=== PATIENT | female | born 1965 | race Caucasian/White ===

== ENCOUNTER 2016-09-21 17:31 | Observation (INO) | payer MEDICAID, OTHER ==
[~2016-09-21 17:31] MED LIST: ATEN-100 PO; BENI40TA30 PO; CLON.1 PO; DIFL150T PO; GLUC10TA3 PO; LANTUS2P SC; LEVO.025 PO; LIPI20TA PO; LISI-360 PO; LISI-363 PO; MAXZ PO; MELO15 PO; METF-324 PO; NORC7.5T PO; NORV10TA PO; PIOG15 PO; PRIL20CA PO; SITA100T PO
[2016-09-21 17:35] VITALS: BP 128/86; PULSE 100; RESP 16; TEMP 98.8; O2SAT 100
--- NOTE | 2016-09-21 17:39 | PD ---
Physical Exam Date Seen by Provider: Sep 21, 2016 Time Seen by Provider: 17:35 Narrative Pt started have abdominal cramps last night. Diarrhea started last night around 2230, pt states she was up all night. She states her stomach is sore and she has a headache. When she was having the recurring bowel movements she became diaphoretic. Shes not having loose stools today but continues to have abdominal cramping. Her pain is a 5/10-8/10. PMHx: Diverticulosis, T2DM, HTN, HLD, hypothyroid, GERD. MDM Supervised Visit with DIANDRA: Yulissa Ruiz Sep 21, 2016 17:39
[2016-09-21] MEDS ORDERED: SODIUM CHLOR 0.9% 1000 ML INJ 1,000 ML IV SCH ×2 (18:27→20:29)
[2016-09-21] MEDS ORDERED: SODIUM CHLORIDE 0.9% FLUSH 10 ML FLUSH IV FLUSH PRN ×2 (18:30→20:30)
[2016-09-21] MEDS ORDERED: MORPHINE SULFATE 4 MG/ML INJ IV PUSH ONE (18:30)
[2016-09-21] MEDS ORDERED: ONDANSETRON HCL 4 MG/2 ML VIAL IVP ONE (18:30)
[2016-09-21 18:42] VITALS: BP 128/68; PULSE 79; RESP 16; O2SAT 99
[2016-09-21 18:53] LABS: AUTOMATED NEUTROPHIL # 7.7 TH/MM3 (1.8-7.7); BASOPHIL # 0.1 TH/MM3 (0-0.2); BASOPHIL % 0.5 % (0.0-2.0); EOSINOPHIL # 0.1 TH/MM3 (0-0.4); EOSINOPHIL % 1.1 % (0.0-4.0); HEMATOCRIT 37.4 % (35.0-46.0); HEMO FLAGS DIFF FINAL; LYMPH % 18.9 % (9.0-44.0); LYMPHOCYTE # 1.9 TH/MM3 (1.0-4.8); MEAN CELL VOLUME 85.5 FL (80.0-100.0); MEAN CORPUSCULAR HEMOGLOBIN 27.5 PG (27.0-34.0); MEAN CORPUSCULAR HGB CONC 32.2 % (32.0-36.0); MONO % 4.9 % (0.0-8.0); NEUT % 74.6 % (16.0-70.0); PLATELET COUNT 150 TH/MM3 (150-450); RED BLOOD COUNT 4.37 MIL/MM3 (4.00-5.30); RED CELL DISTRIBUTION WIDTH 13.8 % (11.6-17.2); WHITE BLOOD COUNT 10.3 TH/MM3 (4.0-11.0)
--- NOTE | 2016-09-21 19:00 | PD ---
HPI Chief Complaint: Abdominal Pain Time Seen by Provider: 18:18 Travel History International Travel<30 days: No Contact w/Intl Traveler<30days: No Traveled to known affect area: No History of Present Illness HPI Patient is a 51-year-old female presents emergency Department with abdominal cramping particularly in the left lower quadrant as well as some diarrhea since last night. Patient states diarrhea initially was melena and now has become bright red blood. She does state that she has a history of liver disease and cirrhosis. She states that the diarrhea was so intense last night that she was becoming diaphoretic and felt like she was given a pass out from it. States the abdominal cramping is now very intense and she decided to come in and be seen. Her only abdominal history is a section. She denies any fevers denies any hemoptysis or hematemesis. Denies any chest pain or shortness of breath. PFSH Past Medical History Arthritis: Yes Anxiety: Yes Depression: Yes Cancer: No Cardiac Catheterization: No Cardiovascular Problems: Yes High Cholesterol: Yes Congestive Heart Failure: No Diabetes: Yes Diminished Hearing: No Gastrointestinal Disorders: Yes (IBS) Glaucoma: No Hepatitis: Yes (HEP C) Hiatal Hernia: No Hypertension: Yes Respiratory: No Immunizations Current: No Thyroid Disease: No Menopausal: Yes : 2 Para: 2 Tubal Ligation: Yes Past Surgical History Section: Yes Gynecologic Surgery: Yes (C SECTION/ TUBAL LIGATION) Neurologic Surgery: Yes (BACK) Pacemaker: No Social History Alcohol Use: No Tobacco Use: Yes (1 ppd) Substance Use: No Allergies-Medications (Allergen,Severity, Reaction): Coded Allergies: Hctz (Verified Adverse Reaction, Intermediate, WEAKNESS, LIGHTHEADED, NAUSEA, 09/21/16) Reported Meds & Prescriptions Reported Meds & Active Scripts Active Reported Amlodipine (Amlodipine Besylate) 10 Mg Tab 10 Mg PO DAILY Tizanidine (Tizanidine HCl) 4 Mg Cap 4 Mg PO TID Pioglitazone (Pioglitazone HCl) 30 Mg Tab 30 Mg PO DAILY Omeprazole 20 Mg Tab 20 Mg PO DAILY Vitamin D2 (Ergocalciferol) 2,000 Unit Tab 50,000 Units PO WEEKLY Lisinopril 40 Mg Tab 40 Mg PO DAILY Novolin 70-30 Inj (Insulin Human Isoph/Insulin Regular) 1,000 Unit/10 Ml Vial 12 Units SQ Janumet Xr (Sitagliptin-Metformin ER) 100-1,000 Mg Tab 1 Tab PO DAILY Levothyroxine (Levothyroxine Sodium) 150 Mcg Tab 150 Mcg PO DAILY Lantus Inj (Insulin Glargine) 1,000 Unit/10 Ml Vial 20 Units SQ HS Review of Systems Except as stated in HPI: all other systems reviewed are Neg Physical Exam Narrative GENERAL: Well-developed well-nourished no apparent distress. SKIN: Focused skin assessment warm/dry. HEAD: Atraumatic. Normocephalic. EYES: Pupils equal and round. No scleral icterus. No injection or drainage. ENT: No nasal bleeding or discharge. Mucous membranes pink and moist. NECK: Trachea midline. No JVD. CARDIOVASCULAR: Regular rate and rhythm. No murmur appreciated. RESPIRATORY: No accessory muscle use. Clear to auscultation. Breath sounds equal bilaterally. GASTROINTESTINAL: Abdomen soft, non-tender, nondistended. Hepatic and splenic margins not palpable. RECTAL: Exam performed with female nurse load dispatcher present at all times. Patient does have no hemorrhoids no fissures no masses. She has some grainy gross red blood. MUSCULOSKELETAL: No obvious deformities. No clubbing. No cyanosis. No edema. NEUROLOGICAL: Awake and alert. No obvious cranial nerve deficits. Motor grossly within normal limits. Normal speech. PSYCHIATRIC: Appropriate mood and affect; insight and judgment normal. Data Data Last Documented VS Vital Signs Date Time Temp Pulse Resp B/P Pulse Ox O2 Delivery O2 Flow Rate FiO2 09/21/16 20:15 83 16 129/70 98 Room Air 09/21/16 17:35 98.8 Orders Complete Blood Count With Diff (09/21/16 18:27) Comprehensive Metabolic Panel (09/21/16 18:27) Lipase (09/21/16 18:27) Prothrombin Time / Inr (Pt) (09/21/16 18:27) Act Partial Throm Time (Ptt) (09/21/16 18:27) Urinalysis - C+S If Indicated (09/21/16 18:27) Ct Abd/Pel W Iv Contrast(Rout) (09/21/16 18:27) Iv Access Insert/Monitor (09/21/16 18:27) Ecg Monitoring (09/21/16 18:27) Oximetry (09/21/16 18:27) Morphine Inj (Morphine Inj) (09/21/16 18:30) Ondansetron Inj (Zofran Inj) (09/21/16 18:30) Sodium Chlor 0.9% 1000 Ml Inj (Ns 1000 M (09/21/16 18:27) Sodium Chloride 0.9% Flush (Ns Flush) (09/21/16 18:30) Type And Screen (09/21/16 18:27) Electrocardiogram (09/21/16 ) Troponin I (09/21/16 19:15) Iohexol 350 Inj (Omnipaque 350 Inj) (09/21/16 19:45) Ciprofloxacin 400 Mg Premix (Cipro 400 M (09/21/16 20:15) Metronidazole 500 Mg Inj (Flagyl 500 Mg (09/21/16 20:15) Admit Order (Ed Use Only) (09/21/16 ) Labs Laboratory Tests Test 09/21/16 09/21/16 18:40 18:54 White Blood Count 10.3 TH/MM3 Red Blood Count 4.37 MIL/MM3 Hemoglobin 12.0 GM/DL Hematocrit 37.4 % Mean Corpuscular Volume 85.5 FL Mean Corpuscular Hemoglobin 27.5 PG Mean Corpuscular Hemoglobin 32.2 % Concent Red Cell Distribution Width 13.8 % Platelet Count 150 TH/MM3 Mean Platelet Volume 8.8 FL Neutrophils (%) (Auto) 74.6 % Lymphocytes (%) (Auto) 18.9 % Monocytes (%) (Auto) 4.9 % Eosinophils (%) (Auto) 1.1 % Basophils (%) (Auto) 0.5 % Neutrophils # (Auto) 7.7 TH/MM3 Lymphocytes # (Auto) 1.9 TH/MM3 Monocytes # (Auto) 0.5 TH/MM3 Eosinophils # (Auto) 0.1 TH/MM3 Basophils # (Auto) 0.1 TH/MM3 CBC Comment DIFF FINAL Differential Comment Prothrombin Time 11.9 SEC Prothromb Time International 1.1 RATIO Ratio Activated Partial 27.6 SEC Thromboplast Time Sodium Level 139 MEQ/L Potassium Level 3.8 MEQ/L Chloride Level 103 MEQ/L Carbon Dioxide Level 24.8 MEQ/L Anion Gap 11 MEQ/L Blood Urea Nitrogen 10 MG/DL Creatinine 0.87 MG/DL Estimat Glomerular Filtration 69 ML/MIN Rate Random Glucose 222 MG/DL Calcium Level 9.2 MG/DL Total Bilirubin 0.4 MG/DL Aspartate Amino Transf 14 U/L (AST/SGOT) Alanine Aminotransferase 24 U/L (ALT/SGPT) Alkaline Phosphatase 68 U/L Troponin I LESS THAN 0.02 NG/ML Total Protein 7.7 GM/DL Albumin 3.7 GM/DL Lipase 139 U/L Blood Type A POSITIVE Antibody Screen NEGATIVE Blood Bank Comment P Urine Color LIGHT-YELLOW Urine Turbidity CLEAR Urine pH 5.5 Urine Specific [place] 1.033 Urine Protein NEG mg/dL Urine Glucose (UA) 1000 mg/dL Urine Ketones NEG mg/dL Urine Occult Blood NEG Urine Nitrite NEG Urine Bilirubin NEG Urine Urobilinogen LESS THAN 2.0 MG/DL Urine Leukocyte Esterase NEG Urine RBC LESS THAN 1 /hpf Urine WBC 4 /hpf Urine Squamous Epithelial <1 /hpf Cells Microscopic Urinalysis Comment CULT NOT INDICATED MDM Medical Decision Making Medical Screen Exam Complete: Yes Emergency Medical Condition: Yes Interpretation(s) EKG shows normal sinus rhythm with a borderline left axis deviation and normal R -wave progression. No concerning ST-T changes. Intervals within normal limits. This borderline EKG. Differential Diagnosis Abdominal cramping, GI bleed, acute abdomen unlikely, diverticulitis, diverticulosis, coagulopathy. Narrative Course Patient was roomed in the emergency department. Notable findings were left lower quadrant abdominal pain, hemoglobin of 12, vital signs are stable, no evidence of hypoperfusion. She does have gross blood on her rectal exam. Given the history of liver disease as well as GI bleeding CAT scan was warranted. Last 24 hours Impressions Abdomen/Pelvis CT 09/21/16 3354 Signed Impressions: Service Date/Time: Wednesday, September 21, 2016 19:36 - CONCLUSION: 1. Colitis descending colon. Inflammatory changes without abscess or perforation. 2. Diverticulosis sigmoid colon. 3. Cholecystectomy clips. Vargas Mata MD Discussed the results with the patient who is feeling somewhat better. Discussed given her history of liver disease as well as GI bleeding and her age she would be well to do for observation. For hemoglobin trending at a minimum and she is agreeable. We'll start on empiric Cipro and Flagyl for colitis. Patient was discussed with Dr. Lara for admission. An EKG and troponin were obtained due to the patient's diaphoresis both of which are unremarkable. Patient is highly atypical for ACS. Diagnosis Primary Impression: GI bleed Qualified Code: K92.2 - Gastrointestinal hemorrhage, unspecified gastrointestinal hemorrhage type Additional Impression: Colitis Admitting Information Admitting Physician Requests: Observation Condition: Stable Mitch Ghosh MD Sep 21, 2016 19:00
[2016-09-21 19:03] LABS: APTT (PATIENT) 27.6 SEC (24.3-30.1); INTERNATIONAL NORMALIZED RATIO 1.1 RATIO; PROTHROMBIN TIME - PATIENT 11.9 SEC (9.8-11.6)
[2016-09-21 19:13] LABS: ALKALINE PHOSPHATASE 68 U/L (45-117); ALT (GPT) 24 U/L (10-53); ANION GAP 11 MEQ/L (5-15); AST (GOT) 14 U/L (15-37); BICARBONATE 24.8 MEQ/L (21.0-32.0); BLOOD UREA NITROGEN 10 MG/DL (7-18); CHLORIDE 103 MEQ/L (98-107); GLOMERULAR FILTRATION RATE 69 ML/MIN (>89); POTASSIUM 3.8 MEQ/L (3.5-5.1); SODIUM (NA) 139 MEQ/L (136-145); TOTAL BILIRUBIN ADULT 0.4 MG/DL (0.2-1.0)
[2016-09-21 19:19] LABS: BLOOD, URINE NEG (NEG); GLUCOSE,URINE 1000 mg/dL (NEG); KETONE, URINE NEG (NEG); NITRITE,URINE NEG (NEG); PH, URINE 5.5 (5.0-8.5); SQUAMOUS EPITHELIAL CELL URINE <1 /hpf (0-5); URINE COLOR LIGHT-YELLOW (YELLW/STRAW)
[2016-09-21 19:29] LABS: COMMENT (UR) CULT NOT INDICATED; CULTURE IF INDICATED CULT NOT INDICATED
[2016-09-21] MEDS ORDERED: IOHEXOL 350 MG/ML 10 ML VIAL (for RAD DIAG) IV ONE (19:45)
--- NOTE | 2016-09-21 20:02 | RADRPT ---
EXAM DATE/TIME: 09/21/2016 19:36 [facility] COMPARISON: No previous studies available for comparison. INDICATIONS : Abdomen pain with diarrhea. IV CONTRAST: 93 cc Omnipaque 350 (iohexol) IV ORAL CONTRAST: No oral contrast ingested. RADIATION DOSE: 12.53 CTDIvol (mGy) MEDICAL HISTORY : Cardiovascular disease. Hypertension. Diabetes mellitus type 2.Hep C SURGICAL HISTORY : Tubal ligation. ENCOUNTER: Initial ACUITY: 1 day PAIN SCALE: 6/10 LOCATION: Bilateral abdomen TECHNIQUE: Volumetric scanning of the abdomen and pelvis was performed. Using automated exposure control and ad justment of the mA and/or kV according to patient size, radiation dose was kept as low as reasonably achievable to obtain optimal diagnostic quality images. FINDINGS: LOWER LUNGS: The visualized lower lungs are clear. LIVER: Homogeneous density without lesion. There is no dilation of the biliary tree. Cholecystectomy clips. SPLEEN: Normal size without lesion. PANCREAS: Within normal limits. KIDNEYS: Normal in size and shape. There is no mass, stone or hydronephrosis. ADRENAL GLANDS: Within normal limits. VASCULAR: There is no aortic aneurysm. BOWEL/MESENTERY: Wall thickening and inflammatory changes involving the descending colon. There is diverticulosis of t he sigmoid colon.. There is no free intraperitoneal air or fluid. ABDOMINAL WALL: Within normal limits. RETROPERITONEUM: There is no lymphadenopathy. BLADDER: No wall thickening or mass. REPRODUCTIVE: Within normal limits. INGUINAL: There is no lymphadenopathy or hernia. MUSCULOSKELETAL: Within normal limits for patient age. CONCLUSION: 1. Colitis descending colon. Inflammatory changes without abscess or perforation. 2. Diverticulosis sigmoid colon. 3. Cholecystectomy clips. Vargas Mata MD on September 21, 2016 at 19:58 Board Certified Radiologist. This report was verified electronically.
[2016-09-21 20:15] VITALS: BP 129/70; PULSE 83; RESP 16; O2SAT 98
[2016-09-21] MEDS ORDERED: CIPROFLOXACIN 400 MG PREMIX 200 ML IV ONE (20:15)
[2016-09-21] MEDS ORDERED: metroNIDAZOLE 500 MG INJ 100 ML IV ONE (20:15)
[2016-09-21] MEDS ORDERED: ONDANSETRON HCL 4 MG/2 ML VIAL IVP PRN (20:30)
[2016-09-21] MEDS ORDERED: NALOXONE HCL 0.4 MG/ML AMP IV PRN (20:30)
[2016-09-21] MEDS ORDERED: LANTUS2P SQ (20:46)
[2016-09-21] MEDS ORDERED: PIOG30TA4 PO (20:46)
[2016-09-21] MEDS ORDERED: TIZA4CAP3 PO (20:46)
[2016-09-21] MEDS ORDERED: NOVO7030P2 SQ (20:46)
[2016-09-21] MEDS ORDERED: LISI40TA PO (20:46)
[2016-09-21] MEDS ORDERED: ERGO2000 PO (20:46)
[2016-09-21] MEDS ORDERED: SITA100T PO (20:46)
[2016-09-21] MEDS ORDERED: OMEP20TA PO (20:46)
[2016-09-21] MEDS ORDERED: LEVO150T7 PO (20:46)
[2016-09-21] MEDS ORDERED: AMLO10TA2 PO (20:47)
[2016-09-21] MEDS: SODIUM CHLORIDE 0.9% FLUSH 10 ML FLUSH IV FLUSH SCH (21:00)
[2016-09-21] MEDS ORDERED: PANTOPRAZOLE INJ 80 MG in SODIUM CHLORIDE 0.9% INJ 35 ML IV ONE (21:30)
--- NOTE | 2016-09-21 21:41 | HHI.HP ---
HPI Service [facility] Primary Care Physician Scott Quinones M.D. Admission Diagnosis GI bleeding Diagnoses: Chief Complaint: abdominal pain with GI bleed Travel History International Travel<30 Days: No Contact w/Intl Traveler <30 Da: No Traveled to Known Affected Are: No History of Present Illness This is a 51 year old female patient with a past medical history which includes diabetes, HTN, thyroid, hyperlipidemia, cirrhosis- denies varices, hep C s/p treatment 2013 and IBS. Patient reports she was in her normal state of ivone until last night around 1030PM. At that time patient reports severe cramping abdominal pain associated with "the runs" at first stools were dark black then transitioned to brown with red blood. Patient also reports abdominal bloating. Patient also reports associated diaphoresis, cold sweat then flushing and feeling lightheaded last night while on toilet. She denies shortness of breath , chest pain or changes on diet. Review of Systems Except as stated in HPI: all other systems reviewed are Neg Past Family Social History Past Medical History diabetes, HTN, thyroid, hyperlipidemia, cirrhosis- denies varices, hep C s/p treatment 2013 and IBS Past Surgical History cholecystectomy, c section, back surgery Reported Medications Amlodipine (Amlodipine Besylate) 10 Mg Tab 10 Mg PO DAILY Tizanidine (Tizanidine HCl) 4 Mg Cap 4 Mg PO TID Pioglitazone (Pioglitazone HCl) 30 Mg Tab 30 Mg PO DAILY Omeprazole 20 Mg Tab 20 Mg PO DAILY Vitamin D2 (Ergocalciferol) 2,000 Unit Tab 50,000 Units PO WEEKLY Lisinopril 40 Mg Tab 40 Mg PO DAILY Novolin 70-30 Inj (Insulin Human Isoph/Insulin Regular) 1,000 Unit/10 Ml Vial 12 Units SQ Janumet Xr (Sitagliptin-Metformin ER) 100-1,000 Mg Tab 1 Tab PO DAILY Levothyroxine (Levothyroxine Sodium) 150 Mcg Tab 150 Mcg PO DAILY Lantus Inj (Insulin Glargine) 1,000 Unit/10 Ml Vial 20 Units SQ HS Allergies: Coded Allergies: Hctz (Verified Adverse Reaction, Intermediate, WEAKNESS, LIGHTHEADED, NAUSEA, 09/21/16) Active Ordered Medications Current Medications Medications (Trade) Dose Ordered Sig/Mook Route Start Time Stop Time Status Last Admin (NS Flush) 2 ml UNSCH PRN IV FLUSH 09/21/16 20:30 (NS Flush) 2 ml BID IV FLUSH 09/21/16 21:00 (Zofran Inj) 4 mg Q6H PRN IVP 09/21/16 20:30 Naloxone HCl 0.4 mg 0.4 mg UNSCH PRN IV 09/21/16 20:30 Ciprofloxacin/ Dextrose 200 ml @ 200 mls/hr Q12H IV 09/22/16 08:00 Metronidazole 100 ml @ 100 mls/hr Q6H IV 09/22/16 03:00 Pantoprazole Sodium 80 mg/ Sodium Chloride 100 ml @ 10 mls/hr Q10H IV 09/21/16 21:30 (D5W-NS 1000 ml Inj) 1,000 ml @ 42 mls/hr [id number] IV 09/21/16 21:45 Family History Mother DM, HTN, colitis, diverticulosis Social History smoke 1 PPD quit ETOH use 14 years ago Physical Exam Vital Signs Vital Signs Date Time Temp Pulse Resp B/P Pulse Ox O2 Delivery O2 Flow Rate FiO2 09/21/16 20:15 83 16 129/70 98 Room Air 09/21/16 19:00 16 09/21/16 18:42 79 16 128/68 99 Room Air 09/21/16 17:35 98.8 100 16 128/86 100 Physical Exam GENERAL: This is a well-nourished, well-developed patient, appears uncomfortable SKIN: No rashes, ecchymoses or lesions. Cool and dry. HEAD: Atraumatic. Normocephalic. No temporal or scalp tenderness. EYES: Extraocular motions intact. No scleral icterus. No injection or drainage. CARDIOVASCULAR: Regular rate and rhythm without murmurs, gallops, or rubs. RESPIRATORY: Clear to auscultation. Breath sounds equal bilaterally. No wheezes , rales, or rhonchi. GASTROINTESTINAL: Abdomen soft, tender throughout worse LLQ, distended. MUSCULOSKELETAL: Extremities without clubbing, cyanosis, or edema. No joint tenderness, effusion, or edema noted. No calf tenderness. Negative Homans sign bilaterally. NEUROLOGICAL: Awake and alert. Motor and sensory grossly within normal limits. Five out of 5 muscle strength in all muscle groups. Normal speech. Laboratory Laboratory Tests Test 09/21/16 09/21/16 18:40 18:54 White Blood Count 10.3 Red Blood Count 4.37 Hemoglobin 12.0 Hematocrit 37.4 Mean Corpuscular Volume 85.5 Mean Corpuscular Hemoglobin 27.5 Mean Corpuscular Hemoglobin 32.2 Concent Red Cell Distribution Width 13.8 Platelet Count 150 Mean Platelet Volume 8.8 Neutrophils (%) (Auto) 74.6 Lymphocytes (%) (Auto) 18.9 Monocytes (%) (Auto) 4.9 Eosinophils (%) (Auto) 1.1 Basophils (%) (Auto) 0.5 Neutrophils # (Auto) 7.7 Lymphocytes # (Auto) 1.9 Monocytes # (Auto) 0.5 Eosinophils # (Auto) 0.1 Basophils # (Auto) 0.1 CBC Comment DIFF FINAL Differential Comment Prothrombin Time 11.9 Prothromb Time International 1.1 Ratio Activated Partial 27.6 Thromboplast Time Sodium Level 139 Potassium Level 3.8 Chloride Level 103 Carbon Dioxide Level 24.8 Anion Gap 11 Blood Urea Nitrogen 10 Creatinine 0.87 Estimat Glomerular Filtration 69 Rate Random Glucose 222 Calcium Level 9.2 Total Bilirubin 0.4 Aspartate Amino Transf 14 (AST/SGOT) Alanine Aminotransferase 24 (ALT/SGPT) Alkaline Phosphatase 68 Troponin I LESS THAN 0.02 Total Protein 7.7 Albumin 3.7 Lipase 139 Blood Type A POSITIVE Antibody Screen NEGATIVE Blood Bank Comment P Urine Color LIGHT-YELLOW Urine Turbidity CLEAR Urine pH 5.5 Urine Specific [place] 1.033 Urine Protein NEG Urine Glucose (UA) 1000 Urine Ketones NEG Urine Occult Blood NEG Urine Nitrite NEG Urine Bilirubin NEG Urine Urobilinogen LESS THAN 2.0 Urine Leukocyte Esterase NEG Urine RBC LESS THAN 1 Urine WBC 4 Urine Squamous Epithelial <1 Cells Microscopic Urinalysis Comment CULT NOT INDICATED Result Diagram: 09/21/16183909/21/161839 Imaging Last Impressions Abdomen/Pelvis CT 09/21/161826 Signed Impressions: Service Date/Time: Wednesday, September 21, 2016 19:36 - CONCLUSION: 1. Colitis descending colon. Inflammatory changes without abscess or perforation. 2. Diverticulosis sigmoid colon. 3. Cholecystectomy clips. Vargas Mata MD Assessment and Plan Problem List: (1) Colitis ICD Code: K52.9 Status: Acute (2) GI bleed ICD Code: K92.2 Status: Acute Assessment and Plan This is a 51 year old female patient with a past medical history which includes diabetes, HTN, thyroid, hyperlipidemia, cirrhosis- denies varices, hep C s/p treatment 2013 and IBS. Patient reports she was in her normal state of ivone until last night around 1030PM. At that time patient reports severe cramping abdominal pain associated with "the runs" at first stools were dark black then transitioned to brown with red blood. Patient also reports abdominal bloating. Patient also reports associated diaphoresis, cold sweat then flushing and feeling lightheaded last night while on toilet. She denies shortness of breath , chest pain or changes on diet. Colitis with GI bleed CT abdomin/pelvis reveiwed by myself and Dr. Hutchison reveals: Colitis descending colon. Inflammatory changes without abscess or perforation. Diverticulosis sigmoid colon. Cholecystectomy clips. serial H&H occult stool NPO IV fluids D5NS at 42 ml/hour as patient is diabetic cipro and flagyl IV consult GI Protonix drip DM type 2 also on insulin- chronic hold oral diabetic medication accuchecks ACHS with SSI coverage Other stable chronic medical conditions include HTN, hypothyroidism and cirrhosis- will continue home medications DVT prophylaxis SCDs avoid chemical DVT prophylaxis discussed with ER provider, nursing and patient Written by Gerri Mcknight, acting as scribe for Dr. Hutchison on 09/21/16 at 21: 38. This note was transcribed by scribe [Gerri Mcknight]. I, Dr. Johnathan Hutchison personally performed the history, physical exam, and medical decision making; and confirmed the accuracy of the information in the transcribed note. Authenticated by Dr. Johnathan Hutchison on 09/21/16 at 21:38. Problem Qualifiers (1) GI bleed: Qualified Code: K92.2 - Gastrointestinal hemorrhage, unspecified gastrointestinal hemorrhage type Gerri Mcknight Sep 21, 2016 21:41 Johnathan Hutchison MD Sep 22, 2016 07:17
[2016-09-21] MEDS ORDERED: GLUCAGON 1 MG/ML VIAL OTHER PRN (21:45)
[2016-09-21] MEDS ORDERED: DEXTROSE 50% IN WATER 50 ML VIAL(D50) IV PUSH PRN (21:45)
[2016-09-21] MEDS: PANTOPRAZOLE INJ 80 MG in SODIUM CHLORIDE 0.9% INJ 100 ML IV SCH (21:55)
[2016-09-21] MEDS: DEXT 5%-NACL 0.9% 1000 ML INJ 1,000 ML IV SCH (21:58)
[2016-09-22] VITALS (8 sets, daily range): BP systolic 96–124; BP diastolic 55–75; PULSE 60–87; RESP 17–20; TEMP 97.8–98.6; O2SAT 95–98
[2016-09-22] MEDS: MORPHINE SULFATE 4 MG/ML INJ IV PUSH PRN (01:20)
[2016-09-22 01:54] LABS: CREATINE KINASE 57 U/L (26-192)
[2016-09-22] MEDS: metroNIDAZOLE 500 MG INJ 100 ML IV SCH ×4 (03:55→23:30)
[2016-09-22] MEDS: LEVOTHYROXINE SODIUM 150 MCG TAB PO SCH (06:11)
[2016-09-22 06:41] LABS: BASOPHIL % 0.4 % (0.0-2.0); EOSINOPHIL # 0.1 TH/MM3 (0-0.4); EOSINOPHIL % 1.9 % (0.0-4.0); HEMATOCRIT 33.4 % (35.0-46.0); HEMO FLAGS DIFF FINAL; LYMPHOCYTE # 2.1 TH/MM3 (1.0-4.8); MEAN CELL VOLUME 85.4 FL (80.0-100.0); MEAN CORPUSCULAR HEMOGLOBIN 27.7 PG (27.0-34.0); MEAN CORPUSCULAR HGB CONC 32.5 % (32.0-36.0); MONO % 5.2 % (0.0-8.0); NEUT % 65.5 % (16.0-70.0); PLATELET COUNT 123 TH/MM3 (150-450); RED BLOOD COUNT 3.91 MIL/MM3 (4.00-5.30); RED CELL DISTRIBUTION WIDTH 13.7 % (11.6-17.2); WHITE BLOOD COUNT 7.6 TH/MM3 (4.0-11.0)
[2016-09-22] MEDS: INSULIN ASPART SUPPLEMENTAL SCALE SQ SCH ×4 (07:00→21:00)
[2016-09-22 07:13] LABS: ANION GAP 7 MEQ/L (5-15); BICARBONATE 25.2 MEQ/L (21.0-32.0); BLOOD UREA NITROGEN 7 MG/DL (7-18); CHLORIDE 107 MEQ/L (98-107); GLOMERULAR FILTRATION RATE 92 ML/MIN (>89); POTASSIUM 3.7 MEQ/L (3.5-5.1); SODIUM (NA) 139 MEQ/L (136-145)
[2016-09-22 07:17] LABS: CREATINE KINASE 47 U/L (26-192)
--- NOTE | 2016-09-22 08:49 | HHI.PR ---
Subjective Remarks Follow up GI bleeding and abdominal pain. Patient states she has history of IBS and she goes between constipation and diarrhea. Her last episode of diarrhea was prior to coming in last night. She normally has a BM every 2-3 days. She still complains of sever lower abdominal tenderness and cramping. She does have associated nausea, but not vomiting. She is npo until evaluated by GI, and is only given ice chips. Last colonoscopy was a few years ago and states she only had diverticulosis. Objective Vitals Vital Signs Date Time Temp Pulse Resp B/P Pulse Ox O2 Delivery O2 Flow Rate FiO2 09/22/16 07:40 98.0 65 17 111/63 95 09/22/16 04:17 97.9 67 20 100/55 95 09/22/16 02:16 74 09/22/16 02:14 18 09/22/16 00:51 68 20 116/59 96 09/21/16 20:15 83 16 129/70 98 Room Air 09/21/16 19:00 16 09/21/16 18:42 79 16 128/68 99 Room Air 09/21/16 17:35 98.8 100 16 128/86 100 Result Diagram: 09/22/16 0619 09/22/16 0617 Imaging Last Impressions Abdomen/Pelvis CT 09/21/16 1827 Signed Impressions: Service Date/Time: Wednesday, September 21, 2016 19:36 - CONCLUSION: 1. Colitis descending colon. Inflammatory changes without abscess or perforation. 2. Diverticulosis sigmoid colon. 3. Cholecystectomy clips. Vargas Mata MD Objective Remarks GENERAL: This is a well-nourished, well-developed patient, appears in no distress SKIN: No rashes, ecchymoses or lesions. Cool and dry. HEAD: Atraumatic. Normocephalic. EYES: Extraocular motions intact. No scleral icterus. No injection or drainage. CARDIOVASCULAR: Regular rate and rhythm without murmurs, gallops, or rubs. RESPIRATORY: Clear to auscultation. Breath sounds equal bilaterally. No wheezes , rales, or rhonchi. GASTROINTESTINAL: Abdomen soft, tender throughout, worse in LLQ, distended. MUSCULOSKELETAL: Extremities without clubbing, cyanosis, or edema. No joint tenderness, effusion, or edema noted. No calf tenderness. NEUROLOGICAL: Awake and alert. Motor and sensory grossly within normal limits. Normal speech. Medications and IVs Current Medications Medications (Trade) Dose Ordered Sig/Mook Route Start Time Stop Time Status Last Admin (NS Flush) 2 ml UNSCH PRN IV FLUSH 09/21/16 20:30 (NS Flush) 2 ml BID IV FLUSH 09/21/16 21:00 09/22/16 09:08 (Zofran Inj) 4 mg Q6H PRN IVP 09/21/16 20:30 Naloxone HCl 0.4 mg 0.4 mg UNSCH PRN IV 09/21/16 20:30 Ciprofloxacin/ Dextrose 200 ml @ 200 mls/hr Q12H IV 09/22/16 08:00 09/22/16 08:54 Metronidazole 100 ml @ 100 mls/hr Q6H IV 09/22/16 03:00 09/22/16 03:55 Pantoprazole Sodium 80 mg/ Sodium Chloride 100 ml @ 10 mls/hr Q10H IV 09/21/16 21:30 09/22/16 08:56 (D5W-NS 1000 ml Inj) 1,000 ml @ 42 mls/hr [id number] IV 09/21/16 21:45 09/21/16 21:58 (D50w (Vial) Inj) 25 ml UNSCH PRN IV PUSH 09/21/16 21:45 (Glucagon Inj) 1 mg UNSCH PRN OTHER 09/21/16 21:45 (Norvasc) 10 mg DAILY PO 09/22/16 09:00 09/22/16 09:08 (Synthroid) 150 mcg DAILY@0600 PO 09/22/16 06:00 09/22/16 06:11 (Zanaflex) 4 mg TID PO 09/22/16 09:00 (Prinivil) 40 mg DAILY PO 09/22/16 09:00 09/22/16 09:08 (Morphine Inj) 2 mg Q3H PRN IV PUSH 09/22/16 01:00 09/22/16 01:20 (Flu (Quadrivalent) Vaccine Inj) 0.5 ml ONCE ONCE IM 09/23/16 10:00 09/23/16 10:01 A/P Problem List: (1) Colitis ICD Code: K52.9 Status: Acute (2) GI bleed ICD Code: K92.2 Status: Acute Assessment and Plan This is a 51 year old female patient with a past medical history which includes diabetes, HTN, thyroid, hyperlipidemia, cirrhosis- denies varices, hep C s/p treatment 2013 and IBS. Patient reports she was in her normal state of ivone until last night around 1030PM. At that time patient reports severe cramping abdominal pain associated with "the runs" at first stools were dark black then transitioned to brown with red blood. Patient also reports abdominal bloating. Patient also reports associated diaphoresis, cold sweat then flushing and feeling lightheaded last night while on toilet. She denies shortness of breath , chest pain or changes on diet. Colitis with GI bleed CT abdomin/pelvis reviewed Colitis descending colon. Inflammatory changes without abscess or perforation. Diverticulosis sigmoid colon. Cholecystectomy clips. H&H 12.0-->10.9 -Recheck H&H at noon -Occult stool pending -ContNPO -Cont IV fluids D5NS at 42 ml/hour as patient is diabetic -Cont cipro and flagyl IV -Consult GI -ContProtonix drip DM type 2 also on insulin- chronic -hold oral diabetic medication -accuchecks ACHS with SSI coverage Other stable chronic medical conditions include HTN, hypothyroidism and cirrhosis- will continue home medications DVT prophylaxis SCDs avoid chemical DVT prophylaxis Written by LETICIA Bhatti acting as scribe for [Tesha] on 09/22/16 at 08: 40. This note was transcribed by carie PATTERSON. I, Dr. Karen Parkinson personally performed the history, physical exam, and medical decision making; and confirmed the accuracy of the information in the transcribed note. Authenticated by Dr. Karen Parkinson on 09/22/16 at 08:40. Discharge Planning Once cleared by GI Problem Qualifiers (1) GI bleed: Qualified Code: K92.2 - Gastrointestinal hemorrhage, unspecified gastrointestinal hemorrhage type Ankita Nixon Sep 22, 2016 08:49 Karen Parkinson MD Sep 22, 2016 14:31
[2016-09-22] MEDS: CIPROFLOXACIN 400 MG PREMIX 200 ML IV SCH ×2 (08:54→21:02)
[2016-09-22] MEDS: PANTOPRAZOLE INJ 80 MG in SODIUM CHLORIDE 0.9% INJ 100 ML IV SCH ×2 (08:56→19:38)
[2016-09-22] MEDS: SODIUM CHLORIDE 0.9% FLUSH 10 ML FLUSH IV FLUSH SCH ×2 (09:08→21:00)
[2016-09-22] MEDS: LISINOPRIL 20 MG TAB PO SCH (09:08)
--- NOTE | 2016-09-22 10:55 | EKG ---
Date Performed: 09/21/2016 Time Performed: 21:01:06 PTAGE: 51 years EKG: Sinus rhythm NORMAL ECG PREVIOUS TRACING : 09/20/2012 00.52 Compared to prior tracing no significant change DOCTOR: Yin Sewell Interpretating Date/Time 09/27/2016 08:50:31
[2016-09-22 13:29] LABS: REVIEW FLAG FINAL
--- NOTE | 2016-09-22 14:09 | PD.CONS ---
HPI History of Present Illness This is a 51 year old female who came to the hospital for evaluation abdominal cramping diarrhea. She reports that she does have diverticulosis and Irritable bowel syndrome and has associated constipation. She reports that years ago, she had more diarrhea, but more recently she has had more issues with constipation. She started having severe cramping around 10:30 pm Tuesday night. Shortly after, she started having severe diarrhea. She reports that this was dark in color, but she is not sure if there was definite blood. She had multiple episodes of diarrhea, with several episodes. She cannot tell me how many times she went, but states she was "up and down all night long." She had associated nausea without vomiting, chills, diaphoretic episodes, and severe cramping in her lower abdomen. Tuesday, she reports she only had small amounts of stool and states this was more a reddish/brown color. She states she still has the severe cramping intermittently, but has a constant soreness now in her left lower abdomen. There are no aggravating or alleviating factors. She denies any weight loss. She came to the ER for evaluation and Abdomen/Pelvis CT (09/21/16)----> 1. Colitis descending colon. Inflammatory changes without abscess or perforation. 2. Diverticulosis sigmoid colon. 3. Cholecystectomy clips. Her last colonoscopy was 3-[address] Priest. She reports that she is supposed to have EGDs yearly for variceal screening and her last one was 13 months ago. She states that she is actually due for an EGD, but she is in the process of getting referred to another GI physician since Dr. Priest is no longer in this area. She had an appointment for September 24 in [place] , but she states that she will no longer have Medicaid after this month and therefore she cancelled her appointment because she said she would not be able to have any tests that they might order. She also reports that she has cirrhosis secondary to fatty liver disease. She denies any recent travel, suspicious food, sick contacts, or recent antibiotic use. She does have a hx of Hepatitis C, Genotype 3 and was treated Sovaldi and Ribavirin in 2013. This was supposed to be for 6 months, but she went off after 2 months because of side effects. She reports that she has remained undetectable, but states this was last checked about 6 months ago. (Lisa Gomes) PFSH Past Medical History Diabetes HTN Hypothyroid Hyperlipidemia, cirrhosis Hx Hep C s/p treatment 2013 Liver cirrhosis secondary to Fatty liver Irritable Bowel syndrome. Arthritis Chronic back pain Diverticulosis Past Surgical History Cholecystectomy C section Back surgery EGD/Colonoscopy (Lisa Gomes) Coded Allergies: Hctz (Verified Adverse Reaction, Intermediate, WEAKNESS, LIGHTHEADED, NAUSEA, 09/21/16) Medications Allergies Coded Allergies Type Severity Reaction Last Updated Verified Hctz Adverse Reaction Intermediate WEAKNESS, LIGHTHEADED, NAUSEA 09/21/16 Yes Active Scripts Medications Dose Route/Sig Days Date Category Amlodipine (Amlodipine Besylate) 10 Mg Tab 10 Mg PO DAILY 09/21/16 Reported Tizanidine (Tizanidine HCl) 4 Mg Cap 4 Mg PO TID 09/21/16 Reported Pioglitazone (Pioglitazone HCl) 30 Mg Tab 30 Mg PO DAILY 09/21/16 Reported Omeprazole 20 Mg Tab 20 Mg PO DAILY 09/21/16 Reported Vitamin D2 (Ergocalciferol) 2,000 Unit Tab 50,000 Units PO WEEKLY 09/21/16 Reported Lisinopril 40 Mg Tab 40 Mg PO DAILY 09/21/16 Reported Novolin 70-30 Inj (Insulin Human Isoph/Insulin Regular) 1,000 Unit/10 Ml Vial 12 Units SQ 09/21/16 Reported Janumet Xr (Sitagliptin-Metformin ER) 100-1,000 Mg Tab 1 Tab PO DAILY 09/21/16 Reported Levothyroxine (Levothyroxine Sodium) 150 Mcg Tab 150 Mcg PO DAILY 09/21/16 Reported Lantus Inj (Insulin Glargine) 1,000 Unit/10 Ml Vial 20 Units SQ HS 09/21/16 Reported Family History Mother with DM, HTN, colitis, diverticulosis Social History Smokes 1 PPD Quit ETOH use 14 years ago (Lisa Gomes) Review of Systems Constitutional: COMPLAINS OF: Diaphoretic episodes, Weight gain, Weight loss ( fluctuates), Chills, DENIES: Fever Respiratory: DENIES: Cough, Shortness of breath Cardiovascular: DENIES: Chest pain Gastrointestinal: COMPLAINS OF: Abdominal pain, Black stools, Bloody stools, Constipation, Diarrhea, Nausea, Swelling of Abdomen, DENIES: Vomiting Musculoskeletal: COMPLAINS OF: Back pain Hematologic/lymphatic: DENIES: Bruising Neurologic: COMPLAINS OF: Headache Psychiatric: DENIES: Confusion (Lisa Gomes) GI Exam Vitals I&O Vital Signs Date Time Temp Pulse Resp B/P Pulse Ox O2 Delivery O2 Flow Rate FiO2 09/22/16 11:37 98.2 60 19 105/56 98 09/22/16 07:40 98.0 65 17 111/63 95 09/22/16 04:17 97.9 67 20 100/55 95 09/22/16 02:16 74 09/22/16 02:14 18 09/22/16 00:51 68 20 116/59 96 09/21/16 20:15 83 16 129/70 98 Room Air 09/21/16 19:00 16 09/21/16 18:42 79 16 128/68 99 Room Air 09/21/16 17:35 98.8 100 16 128/86 100 Laboratory Test 09/21/16 09/21/16 09/22/16 09/22/16 18:40 18:54 00:40 06:17 White Blood Count 10.3 TH/MM3 Red Blood Count 4.37 MIL/MM3 Hemoglobin 12.0 GM/DL Hematocrit 37.4 % Mean Corpuscular Volume 85.5 FL Mean Corpuscular Hemoglobin 27.5 PG Mean Corpuscular Hemoglobin 32.2 % Concent Red Cell Distribution Width 13.8 % Platelet Count 150 TH/MM3 Mean Platelet Volume 8.8 FL Neutrophils (%) (Auto) 74.6 % Lymphocytes (%) (Auto) 18.9 % Monocytes (%) (Auto) 4.9 % Eosinophils (%) (Auto) 1.1 % Basophils (%) (Auto) 0.5 % Neutrophils # (Auto) 7.7 TH/MM3 Lymphocytes # (Auto) 1.9 TH/MM3 Monocytes # (Auto) 0.5 TH/MM3 Eosinophils # (Auto) 0.1 TH/MM3 Basophils # (Auto) 0.1 TH/MM3 CBC Comment DIFF FINAL Differential Comment Prothrombin Time 11.9 SEC Prothromb Time International 1.1 RATIO Ratio Activated Partial 27.6 SEC Thromboplast Time Sodium Level 139 MEQ/L 139 MEQ/L Potassium Level 3.8 MEQ/L 3.7 MEQ/L Chloride Level 103 MEQ/L 107 MEQ/L Carbon Dioxide Level 24.8 MEQ/L 25.2 MEQ/L Anion Gap 11 MEQ/L 7 MEQ/L Blood Urea Nitrogen 10 MG/DL 7 MG/DL Creatinine 0.87 MG/DL 0.68 MG/DL Estimat Glomerular Filtration 69 ML/MIN 92 ML/MIN Rate Random Glucose 222 MG/DL 148 MG/DL Calcium Level 9.2 MG/DL 8.4 MG/DL Total Bilirubin 0.4 MG/DL Aspartate Amino Transf 14 U/L (AST/SGOT) Alanine Aminotransferase 24 U/L (ALT/SGPT) Alkaline Phosphatase 68 U/L Troponin I LESS THAN 0.02 LESS THAN 0.02 LESS THAN 0.02 NG/ML NG/ML NG/ML Total Protein 7.7 GM/DL Albumin 3.7 GM/DL Lipase 139 U/L Blood Type A POSITIVE Antibody Screen NEGATIVE Blood Bank Comment P Urine Color LIGHT-YELLOW Urine Turbidity CLEAR Urine pH 5.5 Urine Specific [place] 1.033 Urine Protein NEG mg/dL Urine Glucose (UA) 1000 mg/dL Urine Ketones NEG mg/dL Urine Occult Blood NEG Urine Nitrite NEG Urine Bilirubin NEG Urine Urobilinogen LESS THAN 2.0 MG/DL Urine Leukocyte Esterase NEG Urine RBC LESS THAN 1 /hpf Urine WBC 4 /hpf Urine Squamous Epithelial <1 /hpf Cells Microscopic Urinalysis Comment CULT NOT INDICATED Total Creatine Kinase 57 U/L 47 U/L Test 09/22/16 09/22/16 06:19 13:18 White Blood Count 7.6 TH/MM3 Red Blood Count 3.91 MIL/MM3 Hemoglobin 10.9 GM/DL 10.6 GM/DL Hematocrit 33.4 % 32.0 % Mean Corpuscular Volume 85.4 FL Mean Corpuscular Hemoglobin 27.7 PG Mean Corpuscular Hemoglobin 32.5 % Concent Red Cell Distribution Width 13.7 % Platelet Count 123 TH/MM3 Mean Platelet Volume 8.6 FL Neutrophils (%) (Auto) 65.5 % Lymphocytes (%) (Auto) 27.0 % Monocytes (%) (Auto) 5.2 % Eosinophils (%) (Auto) 1.9 % Basophils (%) (Auto) 0.4 % Neutrophils # (Auto) 5.0 TH/MM3 Lymphocytes # (Auto) 2.1 TH/MM3 Monocytes # (Auto) 0.4 TH/MM3 Eosinophils # (Auto) 0.1 TH/MM3 Basophils # (Auto) 0.0 TH/MM3 CBC Comment DIFF FINAL Differential Comment Physical Examination HEENT: Normocephalic; atraumatic; no jaundice. CHEST: CTA CARDIAC: RRR ABDOMEN: Soft, nondistended, diffuse tenderness; no hepatosplenomegaly; bowel sounds are present in all four quadrants. EXTREMITIES: No clubbing, cyanosis, or edema. SKIN: Normal; no rash; no jaundice. RADIATION THERAPIST: No focal deficits; alert and oriented times three. (Lisa Gomes) Assessment and Plan Plan ASSESSMENT: - Acute colitis. Abdomen/Pelvis CT (09/21/16)----> 1. Colitis descending colon. Inflammatory changes without abscess or perforation. 2. Diverticulosis sigmoid colon. 3. Cholecystectomy clips. WBC okay. Denies recent travel, suspicious food, sick contacts or abx use. States she has symptoms like this intermittently, but this episode began acutely on Tuesday. Cipro/Flagyl - GIB. Reports black diarrhea Tuesday night with small amount of red blood mixed within this Tuesday. Has not had any further episodes. HH stable. She reports that her last colonoscopy was 3-[address] Priest and that her last EGD was 13 months ago. She reports that she is actually due for an EGD for variceal screening, but states she had to cancel her appointment because she will no longer have insurance after this month. - Hx liver cirrhosis. Pt states related to fatty liver disease. She does have a hx of ETOH- quit 10 years ago. She also has hx of HCV, s/p tx. LFTs on admission have been stable. - Hx IBS. States usually more issues with constipation. PLAN: - Plan for egd/colonoscopy in am - Obtain consents - Clear liquids - NPO after MN - Golytely prep - Stool studies. - Monitor labs - PPI - IVF - Cipro/Flagyl - Supportive care - Further recommendations to follow based on results of above - PT seen and examined by Dr. Falcon and myself and this note is written on her behalf (Lisa Gomes) Physician Comments Patient seen and examined Agree with above Continue with current supportive care Monitor labs Plan for an EGD and a colonoscopy tomorrow (Ralph Falcon MD) Lisa Gomes Sep 22, 2016 14:09 Ralph Falcon MD Sep 22, 2016 20:41
[2016-09-22] MEDS ORDERED: PEG (High)/E-LYTE SOLN 4000 ML BTL PO ONE (16:00)
--- NOTE | 2016-09-22 20:15 | EKG ---
Date Performed: 09/22/2016 Time Performed: 06:41:41 PTAGE: 51 years EKG: Sinus rhythm POSSIBLE LATERAL MYOCARDIAL INFARCTION BORDERLINE ECG Since PREVIOUS TRACING , no significant change noted PREVIOUS TRACIN09/22/2016 01.00 DOCTOR: Yin Sewell Interpretating Date/Time 09/22/2016 20:13:47
--- NOTE | 2016-09-22 20:20 | EKG ---
Date Performed: 09/22/2016 Time Performed: 01:00:58 PTAGE: 51 years EKG: Sinus rhythm NORMAL ECG Since PREVIOUS TRACING , no significant change noted PREVIOUS TRACIN09/21/2016 21.01 DOCTOR: Yin Sewell Interpretating Date/Time 09/22/2016 20:19:31
[2016-09-22 20:55] LABS: C. DIFF EPI 027 PRESUMPTIVE NEGATIVE (NEGATIVE); C. DIFF TOXIN PCR NEGATIVE (NEGATIVE)
[2016-09-23 01:20] VITALS: PULSE 80
[2016-09-23 01:59] LABS: HEMATOCRIT 34.8 % (35.0-46.0); REVIEW FLAG FINAL
[2016-09-23] MEDS: metroNIDAZOLE 500 MG INJ 100 ML IV SCH ×3 (03:06→15:00)
[2016-09-23 03:57] VITALS: BP 105/55; PULSE 70; RESP 20; TEMP 97.2; O2SAT 95
[2016-09-23 04:21] LABS: HEMATOCRIT 33.3 % (35.0-46.0); REVIEW FLAG FINAL
[2016-09-23] MEDS: LEVOTHYROXINE SODIUM 150 MCG TAB PO SCH (06:39)
[2016-09-23] MEDS: PANTOPRAZOLE INJ 80 MG in SODIUM CHLORIDE 0.9% INJ 100 ML IV SCH ×2 (06:39→13:30)
[2016-09-23] MEDS: INSULIN ASPART SUPPLEMENTAL SCALE SQ SCH ×4 (07:00→21:00)
[2016-09-23] MEDS: MORPHINE SULFATE 4 MG/ML INJ IV PUSH PRN (08:09)
[2016-09-23] MEDS: DEXT 5%-NACL 0.9% 1000 ML INJ 1,000 ML IV SCH ×2 (08:26→21:23)
[2016-09-23] MEDS: CIPROFLOXACIN 400 MG PREMIX 200 ML IV SCH ×2 (08:37→23:02)
[2016-09-23 08:39] LABS: HEMATOCRIT 32.9 % (35.0-46.0); REVIEW FLAG FINAL
[2016-09-23] MEDS: LISINOPRIL 20 MG TAB PO SCH (09:00)
[2016-09-23 09:12] LABS: AUTOMATED NEUTROPHIL # 4.6 TH/MM3 (1.8-7.7); BASOPHIL % 0.3 % (0.0-2.0); EOSINOPHIL # 0.2 TH/MM3 (0-0.4); EOSINOPHIL % 2.6 % (0.0-4.0); HEMATOCRIT 35.1 % (35.0-46.0); HEMO FLAGS DIFF FINAL; LYMPH % 25.6 % (9.0-44.0); LYMPHOCYTE # 1.8 TH/MM3 (1.0-4.8); MEAN CELL VOLUME 84.8 FL (80.0-100.0); MEAN CORPUSCULAR HEMOGLOBIN 27.8 PG (27.0-34.0); MEAN CORPUSCULAR HGB CONC 32.8 % (32.0-36.0); MONO % 4.9 % (0.0-8.0); NEUT % 66.6 % (16.0-70.0); PLATELET COUNT 123 TH/MM3 (150-450); RED BLOOD COUNT 4.13 MIL/MM3 (4.00-5.30); RED CELL DISTRIBUTION WIDTH 13.5 % (11.6-17.2)
[2016-09-23 09:27] VITALS: BP 115/65; PULSE 74; RESP 21; TEMP 98.7; O2SAT 97
[2016-09-23] MEDS: SODIUM CHLORIDE 0.9% FLUSH 10 ML FLUSH IV FLUSH SCH (09:31)
[2016-09-23 09:45] LABS: BICARBONATE 24.6 MEQ/L (21.0-32.0); POTASSIUM 3.6 MEQ/L (3.5-5.1)
[2016-09-23] MEDS ORDERED: INFLUENZA VIRUS VACCINE (QUADRIVALENT) 0.5 ML SYR IM ONE (10:00)
[2016-09-23 10:45] VITALS: BP 115/65; PULSE 74; RESP 21; TEMP 98.7; O2SAT 97
[2016-09-23] MEDS ORDERED: PROPOFOL 200 MG/20 ML AMP IV ONE (15:22)
--- NOTE | 2016-09-23 15:53 | PD.PROCEDR ---
GI Procedure REFERRING PHYSICIAN Gia PROCEDURE PERFORMED EGD followed by colonoscopy with biopsy INDICATION FOR PROCEDURE GI bleed cirrhosis colitis on CT PROCEDURE: The procedure, risks and benefits were discussed with Ms. Talamantes and informed consent was obtained. Anesthesia sedated her with Diprivan. She was placed in the left lateral decubitus position. EGD: The Pentax videoscope was introduced through the oropharynx and advanced to the second portion of the duodenum under direct visualization. Retroflexion was performed in the stomach. FINDINGS: The esophagus this was normal The stomach this was normal The duodenum this was normal Colonoscopy: The Pentax videoscope was introduced through the rectum and advanced to the cecum where the ileocecal valve and appendiceal orifice were identified. Retroflexion was performed in the rectum. Colonic prep was fair FINDINGS: Colonic withdrawal time greater than 6 minutes as the scope was slowly withdrawn colonic mucosa was carefully inspected the patient was noted to have somewhat of a whitish friable type mucosa in the descending colon and proximal sigmoid most likely representing ischemic changes otherwise colonic mucosa was unremarkable the patient was noted to have mild diverticulosis of the sigmoid region retroflexion was unremarkable cells rectal examination ESTIMATED BLOOD LOSS: None SPECIMENS REMOVED: : Biopsy COMPLICATIONS: None IMPRESSION: Unremarkable EGD Probable ischemic colitis descending and proximal sigmoid Diverticulosis PLAN: Supportive care Await biopsy Advanced diet Follow-up with GI post discharge Colonoscopy in 5 years Ralph Falcon MD Sep 23, 2016 15:53
[2016-09-23 16:15] VITALS: BP 135/70; PULSE 79; RESP 18; TEMP 97.9; O2SAT 96
--- NOTE | 2016-09-23 16:25 | HHI.PR ---
Subjective Remarks Follow up abdominal pain and diarrhea. Patient just returned from GI. Patient denies any abdominal pain, or cramping and only slight diarrhea. No fever or chills. She says she feels good enough to eat a cheeseburger, no nausea or vomiting. Objective Vitals Vital Signs Date Time Temp Pulse Resp B/P Pulse Ox O2 Delivery O2 Flow Rate FiO2 09/23/16 15:58 76 16 111/67 98 09/23/16 15:48 98.4 78 16 113/78 98 09/23/16 10:45 98.7 74 21 115/65 97 09/23/16 09:27 98.7 74 21 115/65 97 09/23/16 03:57 97.2 70 20 105/55 95 09/23/16 01:20 80 09/22/16 23:58 98.0 75 20 114/75 97 09/22/16 19:21 98.6 62 20 96/67 95 09/22/16 17:54 97.8 87 18 124/68 97 I/O 09/22/16 09/22/16 09/22/16 09/23/16 09/23/16 09/23/16 07:00 15:00 23:00 07:00 15:00 23:00 Intake Total 1080 ml 400 ml Balance 1080 ml 400 ml Intake Oral 480 ml IV Total 600 ml Other 400 ml # Voids 3 4 Result Diagram: 09/23/16 0835 09/23/16 0835 Imaging Last Impressions Abdomen/Pelvis CT 09/21/16 1827 Signed Impressions: Service Date/Time: Wednesday, September 21, 2016 19:36 - CONCLUSION: 1. Colitis descending colon. Inflammatory changes without abscess or perforation. 2. Diverticulosis sigmoid colon. 3. Cholecystectomy clips. Vargas Mata MD Objective Remarks GENERAL: This is a well-nourished, well-developed patient, appears in no distress SKIN: No rashes, ecchymoses or lesions. Cool and dry. HEAD: Atraumatic. Normocephalic. EYES: Extraocular motions intact. No scleral icterus. No injection or drainage. CARDIOVASCULAR: Regular rate and rhythm without murmurs, gallops, or rubs. RESPIRATORY: Clear to auscultation. Breath sounds equal bilaterally. No wheezes , rales, or rhonchi. GASTROINTESTINAL: Abdomen soft, nontender, nondistended MUSCULOSKELETAL: Extremities without clubbing, cyanosis, or edema. No joint tenderness, effusion, or edema noted. No calf tenderness. NEUROLOGICAL: Awake and alert. Motor and sensory grossly within normal limits. Normal speech. Medications and IVs Current Medications Medications (Trade) Dose Ordered Sig/Mook Route Start Time Stop Time Status Last Admin (NS Flush) 2 ml UNSCH PRN IV FLUSH 09/21/16 20:30 (NS Flush) 2 ml BID IV FLUSH 09/21/16 21:00 09/23/16 09:31 (Zofran Inj) 4 mg Q6H PRN IVP 09/21/16 20:30 Naloxone HCl 0.4 mg 0.4 mg UNSCH PRN IV 09/21/16 20:30 Ciprofloxacin/ Dextrose 200 ml @ 200 mls/hr Q12H IV 09/22/16 08:00 09/23/16 08:37 Metronidazole 100 ml @ 100 mls/hr Q6H IV 09/22/16 03:00 09/23/16 08:07 Pantoprazole Sodium 80 mg/ Sodium Chloride 100 ml @ 10 mls/hr Q10H IV 09/21/16 21:30 09/23/16 06:39 (D5W-NS 1000 ml Inj) 1,000 ml @ 42 mls/hr [id number] IV 09/21/16 21:45 09/23/16 08:26 (D50w (Vial) Inj) 25 ml UNSCH PRN IV PUSH 09/21/16 21:45 (Glucagon Inj) 1 mg UNSCH PRN OTHER 09/21/16 21:45 (Norvasc) 10 mg DAILY PO 09/22/16 09:00 09/22/16 09:08 (Synthroid) 150 mcg DAILY@0600 PO 09/22/16 06:00 09/23/16 06:39 (Zanaflex) 4 mg TID PO 09/22/16 09:00 09/22/16 16:20 (Prinivil) 40 mg DAILY PO 09/22/16 09:00 09/22/16 09:08 (Morphine Inj) 2 mg Q3H PRN IV PUSH 09/22/16 01:00 09/23/16 08:09 A/P Problem List: (1) Colitis ICD Code: K52.9 Status: Acute (2) GI bleed ICD Code: K92.2 Status: Acute Assessment and Plan This is a 51 year old female patient with a past medical history which includes diabetes, HTN, thyroid, hyperlipidemia, cirrhosis- denies varices, hep C s/p treatment 2013 and IBS. Patient reports she was in her normal state of ivone until last night around 1030PM. At that time patient reports severe cramping abdominal pain associated with "the runs" at first stools were dark black then transitioned to brown with red blood. Patient also reports abdominal bloating. Patient also reports associated diaphoresis, cold sweat then flushing and feeling lightheaded last night while on toilet. She denies shortness of breath , chest pain or changes on diet. Colitis with GI bleed CT abdomin/pelvis reviewed Colitis descending colon. Inflammatory changes without abscess or perforation. Diverticulosis sigmoid colon. Cholecystectomy clips. H&H 12.0-->10.9-->11.5 -Hbg stable -EGD/colonoscopy complete: GI states unremarkable EGD, probable ischemic colitis descending and proximal sigmoid, and diverticulosis. Plan is follow up out patient with GI, biopsy pending. Repeat Colonoscopy in 5 yrs. -advance diet to heart healthy -Cont Cipro and Flagyl, pt will need out patient rx for a total of 10 day treatment DM type 2 also on insulin- chronic -hold oral diabetic medication -accuchecks ACHS with SSI coverage Other stable chronic medical conditions include HTN, hypothyroidism and cirrhosis- will continue home medications DVT prophylaxis SCDs avoid chemical DVT prophylaxis Written by LETICIA Bhatti acting as scribe for [Tesha] on 09/23/16 at 16: 20. This note was transcribed by scribe Ankita KELLY. I, Dr. Karen Parkinson personally performed the history, physical exam, and medical decision making; and confirmed the accuracy of the information in the transcribed note. Authenticated by Dr. Karen Parkinson on 09/23/16 at 16:20. Discharge Planning DC in AM if patient tolerates diet Problem Qualifiers (1) GI bleed: Qualified Code: K92.2 - Gastrointestinal hemorrhage, unspecified gastrointestinal hemorrhage type Ankita Nixon Sep 23, 2016 16:25 Karen Parkinson MD Sep 23, 2016 20:45
[2016-09-23 20:09] VITALS: BP 102/63; PULSE 78; RESP 18; TEMP 97.8; O2SAT 96
[2016-09-23 20:59] LABS: HEMATOCRIT 31.9 % (35.0-46.0); REVIEW FLAG FINAL
[2016-09-24 00:52] VITALS: BP 104/62; PULSE 78; RESP 18; TEMP 97.9; O2SAT 97
[2016-09-24] MEDS: SODIUM CHLORIDE 0.9% FLUSH 10 ML FLUSH IV FLUSH SCH ×2 (00:54→08:22)
[2016-09-24] MEDS: metroNIDAZOLE 500 MG INJ 100 ML IV SCH ×3 (00:54→09:00)
[2016-09-24] MEDS: PANTOPRAZOLE INJ 80 MG in SODIUM CHLORIDE 0.9% INJ 100 ML IV SCH (03:28)
[2016-09-24 03:50] VITALS: PULSE 67
[2016-09-24] MEDS: LEVOTHYROXINE SODIUM 150 MCG TAB PO SCH (06:42)
[2016-09-24 06:58] LABS: HEMATOCRIT 30.9 % (35.0-46.0); MEAN CELL VOLUME 84.2 FL (80.0-100.0); MEAN CORPUSCULAR HEMOGLOBIN 28.4 PG (27.0-34.0); MEAN CORPUSCULAR HGB CONC 33.7 % (32.0-36.0); PLATELET COUNT 123 TH/MM3 (150-450); RED BLOOD COUNT 3.68 MIL/MM3 (4.00-5.30); RED CELL DISTRIBUTION WIDTH 13.5 % (11.6-17.2); REVIEW FLAG FINAL; WHITE BLOOD COUNT 4.7 TH/MM3 (4.0-11.0)
[2016-09-24] MEDS: INSULIN ASPART SUPPLEMENTAL SCALE SQ SCH (07:00)
--- NOTE | 2016-09-24 07:36 | HHI.DCPOC ---
Discharge Care Plan Diagnosis: (1) Colitis (2) Diverticulosis Goals to Promote Your Health * To prevent worsening of your condition and complications * To maintain your health at the optimal level Directions to Meet Your Goals Take your medications as prescribed Follow your dietary instruction Follow activity as directed Keep your appointments as scheduled Take your immunizations and boosters as scheduled If your symptoms worsen call your PCP, if no PCP go to Urgent Care Center or Emergency Room Smoking is Dangerous to Your Health. Avoid second hand smoke Call the 24-hour hour crisis hotline for domestic abuse at Ankita Nixon Sep 24, 2016 07:36 Karen Parkinson MD Sep 24, 2016 19:00
[2016-09-24 08:03] VITALS: BP 164/89; PULSE 70; RESP 18; TEMP 97.8; O2SAT 100
[2016-09-24] MEDS: LISINOPRIL 20 MG TAB PO SCH (08:20)
[2016-09-24] MEDS: CIPROFLOXACIN 400 MG PREMIX 200 ML IV SCH (08:24)
[2016-09-24] MEDS ORDERED: METR500T10 PO (08:32)
[2016-09-24] MEDS ORDERED: CIPR-9 PO (08:32)
--- NOTE | 2016-09-24 10:13 | HHI.DS ---
cc: Melissa Lopez MD Discharge Summary Admission Date Sep 21, 2016 at 20:31 Discharge Date: Sep 24, 2016 Admitting Diagnosis GI bleeding (1) Colitis ICD Code: K52.9 Diagnosis: Principal (2) GI bleed ICD Code: K92.2 Procedures EGD/ Colonoscopy: GI states unremarkable EGD, probable ischemic colitis descending and proximal sigmoid, and diverticulosis. Plan is follow up out patient with GI,biopsy pending. Repeat Colonoscopy in 5 yrs. Brief History - From Admission This is a 51 year old female patient with a past medical history which includes diabetes, HTN, thyroid, hyperlipidemia, cirrhosis- denies varices, hep C s/p treatment 2013 and IBS. Patient reports she was in her normal state of ivone until last night around 1030PM. At that time patient reports severe cramping abdominal pain associated with "the runs" at first stools were dark black then transitioned to brown with red blood. Patient also reports abdominal bloating. Patient also reports associated diaphoresis, cold sweat then flushing and feeling lightheaded last night while on toilet. She denies shortness of breath , chest pain or changes on diet. CBC/BMP: 09/24/16 0624 09/23/162035 Significant Findings Laboratory Tests Test 09/21/16 09/21/16 09/22/16 09/22/16 18:40 18:54 00:40 06:17 Neutrophils (%) (Auto) 74.6 % (16.0-70.0) Prothrombin Time 11.9 SEC (9.8-11.6) Estimat Glomerular Filtration 69 ML/MIN (>89) Rate Random Glucose 222 MG/DL 148 MG/DL (74-106) (74-106) Aspartate Amino Transf 14 U/L (15-37) (AST/SGOT) Troponin I LESS THAN 0.02 LESS THAN 0.02 LESS THAN 0.02 NG/ML NG/ML NG/ML (0.02-0.05) (0.02-0.05) (0.02-0.05) Urine Glucose (UA) 1000 mg/dL (NEG) Calcium Level 8.4 MG/DL (8.5-10.1) Test 09/22/16 09/22/16 09/23/16 09/23/16 06:19 13:18 01:24 03:44 Red Blood Count 3.91 MIL/MM3 (4.00-5.30) Hemoglobin 10.9 GM/DL 10.6 GM/DL 10.8 GM/DL (11.6-15.3) (11.6-15.3) (11.6-15.3) Hematocrit 33.4 % 32.0 % 34.8 % 33.3 % (35.0-46.0) (35.0-46.0) (35.0-46.0) (35.0-46.0) Platelet Count 123 TH/MM3 (150-450) Test 09/23/16 09/23/16 09/23/16 09/24/16 07:43 08:35 20:36 06:24 Hemoglobin 11.0 GM/DL 11.5 GM/DL 10.7 GM/DL 10.4 GM/DL (11.6-15.3) (11.6-15.3) (11.6-15.3) (11.6-15.3) Hematocrit 32.9 % 31.9 % 30.9 % (35.0-46.0) (35.0-46.0) (35.0-46.0) Platelet Count 123 TH/MM3 123 TH/MM3 (150-450) (150-450) Random Glucose 140 MG/DL (74-106) Calcium Level 8.1 MG/DL (8.5-10.1) Red Blood Count 3.68 MIL/MM3 (4.00-5.30) Imaging Last Impressions Abdomen/Pelvis CT 09/21/16 6167 Signed Impressions: Service Date/Time: Wednesday, September 21, 2016 19:36 - CONCLUSION: 1. Colitis descending colon. Inflammatory changes without abscess or perforation. 2. Diverticulosis sigmoid colon. 3. Cholecystectomy clips. Vargas Mata MD PE at Discharge GENERAL: This is a well-nourished, well-developed patient, appears in no distress SKIN: No rashes, ecchymoses or lesions. Cool and dry. HEAD: Atraumatic. Normocephalic. EYES: Extraocular motions intact. No scleral icterus. No injection or drainage. CARDIOVASCULAR: Regular rate and rhythm without murmurs, gallops, or rubs. RESPIRATORY: Clear to auscultation. Breath sounds equal bilaterally. No wheezes , rales, or rhonchi. GASTROINTESTINAL: Abdomen soft, nontender, nondistended MUSCULOSKELETAL: Extremities without clubbing, cyanosis, or edema. No joint tenderness, effusion, or edema noted. No calf tenderness. NEUROLOGICAL: Awake and alert. Motor and sensory grossly within normal limits. Normal speech. Pt update on day of discharge Patient seen and examined. Patient states she is feeling better, able to tolerate food. No nausea or vomiting. Denies any diarrhea. Hospital Course Colitis with GI bleed CT abdomin/pelvis reviewed Colitis descending colon. Inflammatory changes without abscess or perforation. Diverticulosis sigmoid colon. Cholecystectomy clips. H&H 12.0-->10.9-->11.5 -Hbg stable -EGD/colonoscopy complete: GI states unremarkable EGD, probable ischemic colitis descending and proximal sigmoid, and diverticulosis. Plan is follow up out patient with GI, biopsy pending. Repeat Colonoscopy in 5 yrs. -advance diet to heart healthy -Cont Cipro and Flagyl, pt will need out patient rx for a total of 10 day treatment -No further diarrhea, or abdominal pain. Patient is tolerating food. Written by LETICIA Bhatti acting as scribe for Dr. Hurtado] on 09/24/16 at 10: 15. This note was transcribed by scribe Ankita KELLY. I, Dr. Karen Parkinson personally performed the history, physical exam, and medical decision making; and confirmed the accuracy of the information in the transcribed note. Authenticated by Dr. Karen Parkinson on 09/24/16 at 10:15. Pt Condition on Discharge: Stable Discharge Disposition: Discharge Home Discharge Time: > 30 minutes Discharge Instructions DIET: Follow Instructions for: Diabetic Diet Activities you can perform: Regular-No Restrictions Follow up Referrals: Gastroenterology - 2 Weeks PCP Follow-up - 2-3 Days New Medications: Ciprofloxacin (Cipro) 500 Mg Tab 500 MG PO BID PRN Infection #14 Ref 0 TAB Metronidazole (Metronidazole) 500 Mg Tab 500 MG PO TID Infection #21 Ref 0 TAB Continued Medications: Amlodipine (Amlodipine) 10 Mg Tab 10 MG PO DAILY Blood Pressure Management #30 Ref 0 TAB Ergocalciferol (Vitamin D2) 2,000 Unit Tab 27436 UNITS PO WEEKLY Nutritional Supplement Ref 0 TAB Insulin Glargine Inj (Lantus Inj) 1,000 Unit/10 Ml Vial 20 UNITS SQ HS Blood Sugar Management Ref 0 VIAL Insulin Human Isophane-Regular 70-30 Inj (Novolin 70-30 Inj) 1,000 Unit/10 Ml Vial 12 UNITS SQ Blood Sugar Management Ref 0 ML Levothyroxine (Levothyroxine) 150 Mcg Tab 150 MCG PO DAILY Thyroid #30 Ref 0 TAB Lisinopril (Lisinopril) 40 Mg Tab 40 MG PO DAILY Blood Pressure Management #30 Ref 0 TAB Omeprazole (Omeprazole) 20 Mg Tab 20 MG PO DAILY #30 Ref 0 TAB Pioglitazone (Pioglitazone) 30 Mg Tab 30 MG PO DAILY Blood Sugar Management #30 Ref 0 TAB Sitagliptin-Metformin ER (Janumet Xr) 100-1,000 Mg Tab 1 TAB PO DAILY Blood Sugar Management #30 Ref 0 TAB Tizanidine (Tizanidine) 4 Mg Cap 4 MG PO TID Muscle Spasm Ref 0 CAP Ankita Nixon Sep 24, 2016 10:13 Karen Parkinson MD Sep 24, 2016 12:25
[2016-11-04] MEDS ORDERED: AMLO10TA2 PO (16:26)
[2016-11-04] MEDS ORDERED: LEVEMIR SQ (16:26)
[2016-11-04] MEDS ORDERED: METF1000 PO (16:26)
[2016-11-04] MEDS ORDERED: GLIP10TA6 PO (16:26)
[2016-11-04] MEDS ORDERED: LEVO150T7 PO (16:26)
[2016-11-04] MEDS ORDERED: NOVO7030P2 SQ (16:26)
[2016-11-04] MEDS ORDERED: LISI40TA PO (16:26)
[2016-11-04] MEDS ORDERED: GLUCTES27 (16:29)
[2016-11-04] MEDS ORDERED: BAYEMIS (16:29)
[2016-11-04] MEDS ORDERED: INSU-150 (16:29)
[2016-11-11] MEDS ORDERED: LEVO200T4 PO (12:06)
[2016-11-19] MEDS ORDERED: FURO1TAB62 PO (15:44)
[2016-11-19] MEDS ORDERED: POTA10CA PO (15:44)
[2016-11-19] MEDS ORDERED: PRAV10TA PO (15:58)
== END 2016-09-24 14:16 | disposition home or self-care (01) ==
LOC: NEPD 17:31 → NEDA 20:31 → NEPFCDU 09-22 00:23
PROVIDERS: ADMIT Hospitalist; ATTEND Hospitalist
DX: K55.9 Vascular disorder of intestine, unspecified (principal); K92.2 Gastrointestinal hemorrhage, unspecified; K57.30 Diverticulosis of large intestine without perforation or abscess without bleeding; E11.9 Type 2 diabetes mellitus without complications; I10 Essential (primary) hypertension; E03.9 Hypothyroidism, unspecified; E78.5 Hyperlipidemia, unspecified; B19.20 Unspecified viral hepatitis C without hepatic coma; K74.60 Unspecified cirrhosis of liver; F17.200 Nicotine dependence, unspecified, uncomplicated; M19.90 Unspecified osteoarthritis, unspecified site; K21.9 Gastro-esophageal reflux disease without esophagitis; K58.9 Irritable bowel syndrome, unspecified; M54.9 Dorsalgia, unspecified; G89.29 Other chronic pain; Z79.4 Long term (current) use of insulin; Z90.49 Acquired absence of other specified parts of digestive tract; Z88.8 Allergy status to other drugs, medicaments and biological substances
CPT/HCPCS: 43235; 45380; 74177; 80048; 80053; 81001; 82272; 82550; 82565; 82948; 83690; 84484; 85014; 85018; 85025; 85027; 85610; 85730; 86850; 86900; 86901; 87205; 87328; 87329; 87493; 87506; 88305; 90686; 93005; 96361; 96374; 96375; 99285; C9113; G0378; J0744; J1815; J2270; J2405; J7030; J7042; Q9967; Q2038

== ENCOUNTER 2016-10-28 08:26 | Emergency (ER) | payer MEDICAID, OTHER ==
[~2016-10-28] VITALS: Ht 154.9 cm; Wt 90.0 kg
[~2016-10-28 08:26] MED LIST changes: +AMLO10TA2 PO; -ATEN-100 PO; -BENI40TA30 PO; +CIPR-9 PO; -CLON.1 PO; -DIFL150T PO; +ERGO2000 PO; -GLUC10TA3 PO; -LANTUS2P SC; +LANTUS2P SQ; -LEVO.025 PO; +LEVO150T7 PO; -LIPI20TA PO; -LISI-360 PO; -LISI-363 PO; +LISI40TA PO; -MAXZ PO; -MELO15 PO; -METF-324 PO; +METR500T10 PO; -NORC7.5T PO; -NORV10TA PO; +NOVO7030P2 SQ; +OMEP20TA PO; -PIOG15 PO; +PIOG30TA4 PO; -PRIL20CA PO; +TIZA4CAP3 PO
[2016-10-28 08:28] VITALS: BP 160/78; PULSE 76; RESP 20; TEMP 98.2; O2SAT 98
[2016-10-28] MEDS ORDERED: CANA100T PO (08:56)
--- NOTE | 2016-10-28 09:42 | PD ---
HPI Chief Complaint: GI Complaint Time Seen by Provider: 09:24 Travel History International Travel<30 days: No Contact w/Intl Traveler<30days: No Traveled to known affect area: No History of Present Illness HPI The patient was seen and examined in the presence of the nurse. This patient complains of intermittent lower abdominal cramping with diarrhea and some bright red blood in the diarrhea. No fever. Was nauseous yesterday but no vomiting today. Symptoms severity is moderate. Duration 2 days. No alleviating factors. Patient's symptoms are the same as when she was admitted in August and had colonoscopy consistent with ischemic colitis. She has since lost her insurance and didn't follow-up with any doctors since that stay. PFSH Past Medical History Arthritis: Yes Blood Disorders: No Anxiety: Yes Depression: Yes Cancer: No Cardiac Catheterization: No Cardiovascular Problems: Yes High Cholesterol: Yes Congestive Heart Failure: No Diabetes: Yes Patient Takes Glucophage: No Diminished Hearing: No Endocrine: Yes Gastrointestinal Disorders: Yes (IBS, cirrhosis, fatty liver) Glaucoma: No Genitourinary: No Hepatitis: Yes (HEP C) Hiatal Hernia: No Hypertension: Yes (ON NEW MEDS CURRENTLY) Immune Disorder: No Neurologic: No Psychiatric: Yes Reproductive: Yes (tubal ligation) Respiratory: No Immunizations Current: No Thyroid Disease: Yes Influenza Vaccination: Yes ?: Not Menopausal: Yes : 2 Para: 2 Tubal Ligation: Yes Past Surgical History Section: Yes Gynecologic Surgery: Yes (C SECTION/ TUBAL LIGATION) Neurologic Surgery: Yes (BACK) Pacemaker: No Other Surgery: Yes (choly, c section, back surgery, tubal ligation) Social History Alcohol Use: No Tobacco Use: Yes (1 ppd) Substance Use: No Allergies-Medications (Allergen,Severity, Reaction): Coded Allergies: Hctz (Verified Adverse Reaction, Intermediate, WEAKNESS, LIGHTHEADED, NAUSEA, 09/21/16) Reported Meds & Prescriptions Reported Meds & Active Scripts Active Reported Invokana (Canagliflozin) 100 Mg Tab 100 Mg PO DAILY Take before 1st meal of day. Amlodipine (Amlodipine Besylate) 10 Mg Tab 10 Mg PO DAILY Tizanidine (Tizanidine HCl) 4 Mg Cap 4 Mg PO TID Pioglitazone (Pioglitazone HCl) 30 Mg Tab 30 Mg PO DAILY Omeprazole 20 Mg Tab 20 Mg PO DAILY Vitamin D2 (Ergocalciferol) 2,000 Unit Tab 50,000 Units PO WEEKLY Lisinopril 40 Mg Tab 40 Mg PO DAILY Novolin 70-30 Inj (Insulin Human Isoph/Insulin Regular) 1,000 Unit/10 Ml Vial 12 Units SQ Janumet Xr (Sitagliptin-Metformin ER) 100-1,000 Mg Tab 1 Tab PO DAILY Levothyroxine (Levothyroxine Sodium) 150 Mcg Tab 150 Mcg PO DAILY Lantus Inj (Insulin Glargine) 1,000 Unit/10 Ml Vial 20 Units SQ HS Review of Systems General / Constitutional: No: Fever Eyes: No: Visual changes HENT: No: Headaches Cardiovascular: No: Chest Pain or Discomfort Respiratory: No: Shortness of Breath Gastrointestinal: Positive: Nausea, Diarrhea, Abdominal Pain, Hematochezia Genitourinary: No: Dysuria Musculoskeletal: No: Pain Skin: No Rash Neurologic: No: Weakness Psychiatric: No: Depression Endocrine: No: Polydipsia Hematologic/Lymphatic: No: Easy Bruising Physical Exam Narrative GENERAL: Well-nourished, well-developed patient in no apparent distress. SKIN: Focused skin assessment reveals no rash and nodules. Skin is Warm and dry. HEAD: Atraumatic. Normocephalic. EYES: Pupils equal and round. No scleral icterus. No injection or drainage. ENT: No nasal bleeding or discharge. Mucous membranes pink and moist. NECK: Trachea midline. No JVD. CARDIOVASCULAR: Regular rate and rhythm. No murmur appreciated. RESPIRATORY: No accessory muscle use. Clear to auscultation. Breath sounds equal bilaterally. GASTROINTESTINAL: Abdomen soft, non-tender, nondistended. Hepatic and splenic margins not palpable. MUSCULOSKELETAL: No obvious deformities. No clubbing. No cyanosis. No edema. NEUROLOGICAL: Awake and alert. No obvious cranial nerve deficits. Motor grossly within normal limits. Normal speech. PSYCHIATRIC: Appropriate mood and affect; insight and judgment normal. Rectal: No external hemorrhoid or fissure. Data Data Last Documented VS Vital Signs Date Time Temp Pulse Resp B/P Pulse Ox O2 Delivery O2 Flow Rate FiO2 10/28/16 12:19 60 18 133/74 99 Room Air 10/28/16 08:28 98.2 Orders Basic Metabolic Panel (Bmp) (10/28/16 09:37) Complete Blood Count With Diff (10/28/16 09:37) Prothrombin Time / Inr (Pt) (10/28/16 09:37) Act Partial Throm Time (Ptt) (10/28/16 09:37) Iv Access Insert/Monitor (10/28/16 09:37) NPO (10/28/16 09:37) Sodium Chloride 0.9% Flush (Ns Flush) (10/28/16 09:45) Labs Laboratory Tests Test 10/28/16 09:47 White Blood Count 10.5 TH/MM3 Red Blood Count 4.48 MIL/MM3 Hemoglobin 12.0 GM/DL Hematocrit 37.5 % Mean Corpuscular Volume 83.8 FL Mean Corpuscular Hemoglobin 26.9 PG Mean Corpuscular Hemoglobin 32.1 % Concent Red Cell Distribution Width 14.3 % Platelet Count 160 TH/MM3 Mean Platelet Volume 8.8 FL Neutrophils (%) (Auto) 71.1 % Lymphocytes (%) (Auto) 23.2 % Monocytes (%) (Auto) 3.8 % Eosinophils (%) (Auto) 1.6 % Basophils (%) (Auto) 0.3 % Neutrophils # (Auto) 7.4 TH/MM3 Lymphocytes # (Auto) 2.4 TH/MM3 Monocytes # (Auto) 0.4 TH/MM3 Eosinophils # (Auto) 0.2 TH/MM3 Basophils # (Auto) 0.0 TH/MM3 CBC Comment DIFF FINAL Differential Comment Prothrombin Time 11.7 SEC Prothromb Time International 1.1 RATIO Ratio Activated Partial 27.1 SEC Thromboplast Time Sodium Level 134 MEQ/L Potassium Level 4.0 MEQ/L Chloride Level 102 MEQ/L Carbon Dioxide Level 24.6 MEQ/L Anion Gap 7 MEQ/L Blood Urea Nitrogen 10 MG/DL Creatinine 0.81 MG/DL Estimat Glomerular Filtration 75 ML/MIN Rate Random Glucose 219 MG/DL Calcium Level 9.0 MG/DL [facility] Medical Decision Making Medical Screen Exam Complete: Yes Emergency Medical Condition: Yes Medical Record Reviewed: Yes Differential Diagnosis Colitis, diverticulitis, gastroenteritis Narrative Course I have reviewed the patient's electronic medical record. Reviewed her colonoscopy and GI consultation from August 2016 IV placed CBC is normal Metabolic profile is normal Coagulation studies are normal Her abdomen is soft and benign and nontender I reviewed her case in detail with GI staff weapons officer Dr. Escobar. He notes history of ischemic colitis for reports is nothing much to do a prescribed. He is recommending follow-up with the GI physician. She has normal vitals and is feeling well with normal labs. Diagnosis Primary Impression: Colitis Additional Instructions: The patient was advised to follow up with their physician and return if they worsen. Med/Other Pt SpecificInfo: Other Disposition: 01 DISCHARGE HOME Condition: Stable Gurinder Lira MD Oct 28, 2016 09:42
[2016-10-28] MEDS ORDERED: SODIUM CHLORIDE 0.9% FLUSH 10 ML FLUSH IV FLUSH PRN (09:45)
[2016-10-28 10:03] LABS: AUTOMATED NEUTROPHIL # 7.4 TH/MM3 (1.8-7.7); BASOPHIL % 0.3 % (0.0-2.0); EOSINOPHIL # 0.2 TH/MM3 (0-0.4); EOSINOPHIL % 1.6 % (0.0-4.0); HEMATOCRIT 37.5 % (35.0-46.0); HEMO FLAGS DIFF FINAL; LYMPH % 23.2 % (9.0-44.0); LYMPHOCYTE # 2.4 TH/MM3 (1.0-4.8); MEAN CELL VOLUME 83.8 FL (80.0-100.0); MEAN CORPUSCULAR HEMOGLOBIN 26.9 PG (27.0-34.0); MEAN CORPUSCULAR HGB CONC 32.1 % (32.0-36.0); MONO % 3.8 % (0.0-8.0); NEUT % 71.1 % (16.0-70.0); PLATELET COUNT 160 TH/MM3 (150-450); RED BLOOD COUNT 4.48 MIL/MM3 (4.00-5.30); RED CELL DISTRIBUTION WIDTH 14.3 % (11.6-17.2); WHITE BLOOD COUNT 10.5 TH/MM3 (4.0-11.0)
[2016-10-28 10:11] LABS: APTT (PATIENT) 27.1 SEC (24.3-30.1); INTERNATIONAL NORMALIZED RATIO 1.1 RATIO; PROTHROMBIN TIME - PATIENT 11.7 SEC (9.8-11.6)
[2016-10-28 10:15] LABS: BICARBONATE 24.6 MEQ/L (21.0-32.0)
[2016-10-28 12:19] VITALS: BP 133/74; PULSE 60; RESP 18; O2SAT 99
[2016-11-04] MEDS ORDERED: AMLO10TA2 PO (16:26)
[2016-11-04] MEDS ORDERED: LISI40TA PO (16:26)
[2016-11-04] MEDS ORDERED: GLIP10TA6 PO (16:26)
[2016-11-04] MEDS ORDERED: METF1000 PO (16:26)
[2016-11-04] MEDS ORDERED: LEVO150T7 PO (16:26)
[2016-11-04] MEDS ORDERED: LEVEMIR SQ (16:26)
[2016-11-04] MEDS ORDERED: NOVO7030P2 SQ (16:26)
[2016-11-04] MEDS ORDERED: BAYEMIS (16:29)
[2016-11-04] MEDS ORDERED: INSU-150 (16:29)
[2016-11-04] MEDS ORDERED: GLUCTES27 (16:29)
[2016-11-11] MEDS ORDERED: LEVO200T4 PO (12:06)
[2016-11-19] MEDS ORDERED: FURO1TAB62 PO (15:44)
[2016-11-19] MEDS ORDERED: POTA10CA PO (15:44)
[2016-11-19] MEDS ORDERED: PRAV10TA PO (15:58)
== END 2016-10-28 15:26 | disposition home or self-care (01) ==
LOC: NEPE 08:26
DX: K52.9 Noninfective gastroenteritis and colitis, unspecified (principal); E11.9 Type 2 diabetes mellitus without complications; E78.00 Pure hypercholesterolemia, unspecified; I10 Essential (primary) hypertension; F17.210 Nicotine dependence, cigarettes, uncomplicated
CPT/HCPCS: 80048; 85025; 85610; 85730; 99283

== ENCOUNTER → 2016-11-11 | Outpatient (CLI) | payer OTHER ==
[~2016-11-11] MED LIST changes: +BAYEMIS; -CIPR-9 PO; +FURO1TAB62 PO; +GLIP10TA6 PO; +GLUCTES27; +INSU-150; -LANTUS2P SQ; +LEVEMIR SQ; +LEVO200T4 PO; +METF1000 PO; -METR500T10 PO; -OMEP20TA PO; -PIOG30TA4 PO; +POTA10CA PO; +PRAV10TA PO; -SITA100T PO
[2016-11-11 07:51] LABS: ALT (GPT) 22 U/L (10-53); AST (GOT) 20 U/L (15-37)
[2016-11-11 07:53] LABS: ALKALINE PHOSPHATASE 76 U/L (45-117); INDIRECT BILIRUBIN 0.2 MG/DL (0.0-0.8); LDL CHOLESTEROL 193 MG/DL (0-99); TOTAL BILIRUBIN ADULT 0.3 MG/DL (0.2-1.0)
[2016-11-11 07:59] LABS: FREE T4 0.72 NG/DL (0.76-1.46)
[2016-11-11 16:10] LABS: HEMOGLOBIN A1a 1.1 %; HEMOGLOBIN Ao 82.6 %; HEMOGLOBIN LA1C 2.2 %
== END ==
LOC: CLAB 06:56
PROVIDERS: ATTEND Nurse Practitioner Family
DX: E78.5 Hyperlipidemia, unspecified (principal); E11.9 Type 2 diabetes mellitus without complications; E03.9 Hypothyroidism, unspecified
CPT/HCPCS: 36415; 80061; 80076; 83036; 84439; 84443

== ENCOUNTER → 2016-11-25 | Outpatient (CLI) | payer OTHER ==
[~2016-11-25] MED LIST changes: -LEVO150T7 PO
--- NOTE | 2016-11-25 16:01 | RADRPT ---
EXAM DATE/TIME: 05/30/2006 15:23 [place] COMPARISON: No previous studies available for comparison. INDICATIONS : Bilateral leg swelling. MEDICAL HISTORY : . Hypercholesterolemia. Hypertension. Thyroid disease. Fatty liver disease. IBS. Cirrhosis. Diabetes. Hepatitis C. Anxiety. Depression. SURGICAL HISTORY : Tubal ligation. section. Cholecystectomy.Laminectomy. ENCOUNTER: Initial ACUITY: 2 weeks PAIN SCORE: 4/10 LOCATION: Bilateral legs. TECHNIQUE: Venous ultrasound of the left and right leg was performed from the inguinal ligament to the proximal calf. Real-time, color Doppler and spectral tracing, compression and augmentation techniques were us ed. FINDINGS: RIGHT LEG: There is normal compressibility of the deep venous system from the inguinal region to the proximal ca lf. No echogenic clot is seen in the lumen of the common femoral, femoral, popliteal, and posterior tibial veins. There is a normal response of the venous system to proximal and distal augmentation an d respiration. LEFT LEG: There is normal compressibility of the deep venous system from the inguinal region to the proximal ca lf. No echogenic clot is seen in the lumen of the common femoral, femoral, popliteal, and posterior tibial veins. There is a normal response of the venous system to proximal and distal augmentation an d respiration. CONCLUSION: No evidence of deep venous thrombosis within the lower extremities. Mitch Yoder MD on November 25, 2016 at 15:57 Board Certified Radiologist. This report was verified electronically.
== END ==
LOC: HRAD 14:27
PROVIDERS: ATTEND Family Medicine
DX: R60.0 Localized edema (principal)
CPT/HCPCS: 93970

== ENCOUNTER → 2016-12-10 | Outpatient (CLI) | payer OTHER ==
[~2016-12-10] MED LIST changes: +PRAV20TA2 PO
[2016-12-10 15:42] LABS: BICARBONATE 26.3 MEQ/L (21.0-32.0); POTASSIUM 3.9 MEQ/L (3.5-5.1)
== END ==
LOC: CLAB 15:03
PROVIDERS: ATTEND Nurse Practitioner Family
DX: R60.0 Localized edema (principal)
CPT/HCPCS: 36415; 80048

== ENCOUNTER → 2017-01-28 | Outpatient (CLI) | payer OTHER ==
[~2017-01-28] MED LIST changes: -PRAV10TA PO
[2017-01-28 07:42] LABS: ALT (GPT) 29 U/L (10-53); ANION GAP 9 MEQ/L (5-15); AST (GOT) 20 U/L (15-37); BICARBONATE 24.9 MEQ/L (21.0-32.0); BLOOD UREA NITROGEN 7 MG/DL (7-18); CHLORIDE 104 MEQ/L (98-107); GLOMERULAR FILTRATION RATE 90 ML/MIN (>89); GLUCOSE,FASTING 250 MG/DL (74-99); POTASSIUM 3.8 MEQ/L (3.5-5.1); SODIUM (NA) 138 MEQ/L (136-145)
[2017-01-28 07:52] LABS: ALKALINE PHOSPHATASE 78 U/L (45-117); HDL CHOLESTEROL 24.6 MG/DL (40.0-60.0); LDL CHOLESTEROL 119 MG/DL (0-99); TOTAL BILIRUBIN ADULT 0.3 MG/DL (0.2-1.0)
[2017-01-28 11:51] LABS: HEMOGLOBIN A1a 1.6 %; HEMOGLOBIN A1b 2.5 %; HEMOGLOBIN Ao 79.8 %; HEMOGLOBIN LA1C 2.9 %; HEMOGLOBIN P3 4.5 %
== END ==
LOC: CLAB 07:00
PROVIDERS: ATTEND Nurse Practitioner Family
DX: E03.9 Hypothyroidism, unspecified (principal); E11.9 Type 2 diabetes mellitus without complications; I10 Essential (primary) hypertension; E78.5 Hyperlipidemia, unspecified
CPT/HCPCS: 36415; 80053; 80061; 83036; 84443